=== PATIENT | male | born 1980 | race Caucasian/White ===

== ENCOUNTER 2019-03-22 16:27 | Inpatient (IN) | payer MEDICAID ==
[~2019-03-22] VITALS: Ht 172.7 cm; Wt 87.6 kg
[2019-03-22 17:14] LABS: BASOPHIL % 0.1 % (0-2); PLATELET COUNT 304 x10^3mcL (130-400); RED CELL DISTRIBUTION WIDTH 12.6 % (11.5-14.5)
[2019-03-22 17:20] LABS: CALCIUM 8.3 mg/dL (8.5-10.1); CARBON DIOXIDE 25.4 mmol/L (21-32); CHLORIDE SERUM 99 mmol/L (98-107); CREATININE SERUM 0.8 mg/dL (0.7-1.3); GFR1 > 60 mL/min; GLUCOSE SERUM 91 mg/dL (74-106); POTASSIUM SERUM 4.3 mmol/L (3.5-5.1); SODIUM SERUM 136 mmol/L (136-145)
[2019-03-22 17:22] LABS: microscopic required? YES; urine erythrocyte TRACE (NEGATIVE)
[2019-03-22 17:25] LABS: ALBUMIN 3.2 g/dL (3.4-5.0); ALKALINE PHOSPHATASE 83 U/L (46-116); ALT/SGPT 35 U/L (16-63); AST/SGOT 20 U/L (15-37); LIPASE 123 IU/L (73-393); TOTAL PROTEIN, SERUM 7.9 g/dL (6.4-8.2)
[2019-03-22 19:18] LABS: AMPHETAMINE QUAL UR NONE DETECTED (See below)
[2019-03-22 20:43] VITALS: BP 126/81
[2019-03-22 20:45] VITALS: Ht 172.7 cm; Wt 87.6 kg
[2019-03-23 05:34] VITALS: BP 107/79
[2019-03-23 06:30] LABS: CALCIUM 8.3 mg/dL (8.5-10.1); CARBON DIOXIDE 27.7 mmol/L (21-32); CHLORIDE SERUM 102 mmol/L (98-107); GFR1 > 60 mL/min; GLUCOSE SERUM 80 mg/dL (74-106); MAGNESIUM 2.1 mg/dL (1.8-2.4); POTASSIUM SERUM 4.4 mmol/L (3.5-5.1); SODIUM SERUM 137 mmol/L (136-145)
[2019-03-23 07:04] LABS: BASOPHIL % 0.3 % (0-2); PLATELET COUNT 278 x10^3mcL (130-400)
[2019-03-23 09:11] VITALS: BP 112/68
[2019-03-23 13:58] VITALS: BP 114/74
[2019-03-23 16:28] VITALS: BP 134/88
[2019-03-24 05:44] VITALS: BP 118/84
[2019-03-24 06:38] LABS: BASOPHIL % 0.5 % (0-2); PLATELET COUNT 302 x10^3mcL (130-400); RED CELL DISTRIBUTION WIDTH 12.4 % (11.5-14.5)
[2019-03-24 06:53] LABS: CALCIUM 8.1 mg/dL (8.5-10.1); CARBON DIOXIDE 22.8 mmol/L (21-32); CHLORIDE SERUM 103 mmol/L (98-107); CREATININE SERUM 0.8 mg/dL (0.7-1.3); GFR1 > 60 mL/min; GLUCOSE SERUM 66 mg/dL (74-106); MAGNESIUM 1.9 mg/dL (1.8-2.4); POTASSIUM SERUM 4.2 mmol/L (3.5-5.1); SODIUM SERUM 139 mmol/L (136-145)
[2019-03-24 08:37] VITALS: BP 108/72
[2019-03-24 12:50] VITALS: BP 122/84
[2019-03-24 16:32] VITALS: BP 128/80
[2019-03-24 17:54] LABS: BASOPHIL % 0.6 % (0-2); PLATELET COUNT 333 x10^3mcL (130-400); RED CELL DISTRIBUTION WIDTH 12.6 % (11.5-14.5)
[2019-03-24 21:00] VITALS: BP 119/78
[2019-03-25 05:55] VITALS: BP 122/85
[2019-03-25 06:21] LABS: BASOPHIL % 0.2 % (0-2); PLATELET COUNT 333 x10^3mcL (130-400); RED CELL DISTRIBUTION WIDTH 12.6 % (11.5-14.5)
[2019-03-25 06:52] LABS: CALCIUM 8.3 mg/dL (8.5-10.1); CARBON DIOXIDE 25.7 mmol/L (21-32); CHLORIDE SERUM 102 mmol/L (98-107); CREATININE SERUM 0.8 mg/dL (0.7-1.3); GFR1 > 60 mL/min; GLUCOSE SERUM 137 mg/dL (74-106); MAGNESIUM 2.1 mg/dL (1.8-2.4); PHOSPHOROUS 3.8 mg/dL (2.5-4.9); POTASSIUM SERUM 4.1 mmol/L (3.5-5.1); SODIUM SERUM 137 mmol/L (136-145)
[2019-03-25 09:27] VITALS: BP 122/82
[2019-03-25 09:29] VITALS: BP 122/82
[2019-03-25 12:05] VITALS: BP 119/84
[2019-03-25 17:25] VITALS: BP 115/76
[2019-03-25 19:48] VITALS: BP 107/72
[2019-03-26 05:38] VITALS: BP 108/73
[2019-03-26 06:52] LABS: BASOPHIL % 0.3 % (0-2); PLATELET COUNT 343 x10^3mcL (130-400); RED CELL DISTRIBUTION WIDTH 13.3 % (11.5-14.5)
[2019-03-26 07:04] LABS: CALCIUM 8.2 mg/dL (8.5-10.1); CARBON DIOXIDE 26.1 mmol/L (21-32); CHLORIDE SERUM 103 mmol/L (98-107); CREATININE SERUM 0.8 mg/dL (0.7-1.3); GFR1 > 60 mL/min; GLUCOSE SERUM 110 mg/dL (74-106); MAGNESIUM 1.9 mg/dL (1.8-2.4); PHOSPHOROUS 3.7 mg/dL (2.5-4.9); POTASSIUM SERUM 3.6 mmol/L (3.5-5.1); SODIUM SERUM 138 mmol/L (136-145)
[2019-03-26 09:43] VITALS: BP 110/77
[2019-03-26 17:01] VITALS: BP 116/73
[2019-03-26 19:49] VITALS: BP 108/74
[2019-03-27 05:21] VITALS: BP 106/71
[2019-03-27 07:09] LABS: BASOPHIL % 0.7 % (0-2); PLATELET COUNT 357 x10^3mcL (130-400); RED CELL DISTRIBUTION WIDTH 12.9 % (11.5-14.5)
[2019-03-27 08:27] VITALS: BP 103/72
[2019-03-27 08:55] LABS: CALCIUM 8.3 mg/dL (8.5-10.1); CARBON DIOXIDE 25.6 mmol/L (21-32); CHLORIDE SERUM 106 mmol/L (98-107); CREATININE SERUM 0.8 mg/dL (0.7-1.3); GFR1 > 60 mL/min; GLUCOSE SERUM 104 mg/dL (74-106); POTASSIUM SERUM 3.7 mmol/L (3.5-5.1); SODIUM SERUM 141 mmol/L (136-145)
[2019-03-27 16:22] VITALS: BP 116/80
[2019-03-27 21:53] VITALS: BP 109/72
[2019-03-28 05:02] VITALS: BP 103/72
[2019-03-28 06:35] LABS: BASOPHIL % 0.8 % (0-2); PLATELET COUNT 378 x10^3mcL (130-400); RED CELL DISTRIBUTION WIDTH 13.1 % (11.5-14.5)
[2019-03-28 07:05] LABS: CALCIUM 7.7 mg/dL (8.5-10.1); CARBON DIOXIDE 24.9 mmol/L (21-32); CHLORIDE SERUM 107 mmol/L (98-107); CREATININE SERUM 0.8 mg/dL (0.7-1.3); GFR1 > 60 mL/min; GLUCOSE SERUM 102 mg/dL (74-106); MAGNESIUM 2.1 mg/dL (1.8-2.4); PHOSPHOROUS 4.1 mg/dL (2.5-4.9); POTASSIUM SERUM 3.8 mmol/L (3.5-5.1); SODIUM SERUM 141 mmol/L (136-145)
[2019-03-28 08:21] VITALS: BP 113/80
[2019-03-28 17:11] VITALS: BP 118/83
[2019-03-28 19:59] VITALS: BP 117/87
[2019-03-29 04:31] VITALS: BP 109/79
[2019-03-29 06:41] LABS: BASOPHIL % 0.9 % (0-2); RED CELL DISTRIBUTION WIDTH 12.7 % (11.5-14.5)
[2019-03-29 06:58] LABS: PLATELET COUNT 424 x10^3mcL (130-400)
[2019-03-29 07:06] LABS: CALCIUM 8.4 mg/dL (8.5-10.1); CARBON DIOXIDE 25.3 mmol/L (21-32); CHLORIDE SERUM 105 mmol/L (98-107); CREATININE SERUM 0.8 mg/dL (0.7-1.3); GFR1 > 60 mL/min; GLUCOSE SERUM 97 mg/dL (74-106); MAGNESIUM 2.1 mg/dL (1.8-2.4); PHOSPHOROUS 3.5 mg/dL (2.5-4.9); SODIUM SERUM 140 mmol/L (136-145)
[2019-03-29 09:06] VITALS: BP 105/73
[2019-03-29] MEDS ORDERED: LEVSIN-SL0.125 MG SL (11:52)
[2019-03-29] MEDS ORDERED: MIRALAX17 GM/Dose PO ×2 (11:52→14:00)
[2019-03-29] MEDS ORDERED: LEVAQUIN500 M1 PO ×2 (11:52→14:00)
[2019-03-29] MEDS ORDERED: FLAGYL500 MG PO (11:52)
[2019-03-29 13:33] VITALS: BP 105/73
[2019-03-29] MEDS ORDERED: ANASPAZ0.125 MG PO (14:00)
[2019-03-29] MEDS ORDERED: FLA500 PO (14:00)
== END 2019-03-29 14:24 | disposition home or self-care (01) | DRG 244 ==
LOC: ED 16:27 → MU 18:15 → DU 18:15 → MU 20:29 → DU 03-23 05:19 → MU 03-24 10:27 → DU 03-24 17:07 → MU 03-26 15:19
PROVIDERS: Emergency Medicine; General Practice; ADMIT Internal Medicine
DX: K57.21 Diverticulitis of large intestine with perforation and abscess with bleeding (principal); K65.8 Other peritonitis; K76.0 Fatty (change of) liver, not elsewhere classified; K59.09 Other constipation; Z68.29 Body mass index [BMI] 29.0-29.9, adult
CPT/HCPCS: 82962; 90658; G0378; J0295; J0744; J2270; J2405; J2543; J3010; J3490; J7030; J7042